=== PATIENT | female | born 1950 | race Caucasian/White ===

== ENCOUNTER 2018-07-22 07:46 | Observation (INO) ==
[2018-07-22] MEDS ORDERED: Famotidine 20 MG/2 ML VIAL IVP ONE (08:32)
[2018-07-22] MEDS ORDERED: Clindamycin 600 MG/50 ML 600 MG/50 ML IV.SOLN IVPB ONE (08:33)
[2018-07-22] MEDS ORDERED: Pregabalin 75 MG CAPSULE PO ONE (08:34)
[2018-07-22] MEDS ORDERED: Acetaminophen IV 1,000 MG/100 ML INFUS..BTL IVPB ONE (08:34)
[2018-07-22] MEDS ORDERED: *HR* FentaNYL (PF) 100 MCG/2 ML VIAL ONE (09:26)
[2018-07-22] MEDS ORDERED: *HR* Propofol 200 MG/20 ML VIAL IVP ONE (09:26)
[2018-07-22] MEDS ORDERED: Lidocaine -MPF 2% 2 ML VIAL ONE (09:27)
[2018-07-22] MEDS: Ringers Solution, Lactated 1,000 ML IVC SCH (09:50)
[2018-07-22] MEDS ORDERED: Bupivacaine/EPI 1:200k 0.5%PF 30 ML VIAL ONE (10:14)
[2018-07-22] MEDS ORDERED: *HR* Midazolam HCl 2 MG/2 ML VIAL ONE (10:30)
[2018-07-22] MEDS ORDERED: EPHEDrine 50 MG/ML VIAL ONE (10:38)
--- NOTE | 2018-07-22 10:46 | Anesthesia Evaluation PreOp ---
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: Other ( Anxiety/Depression, Tremors) Other Medical History: GERD, Other (L-breast Ca) Anesthesia History: No Prior Anesthetic Complications, Past Anesthesia (Hyster, Appy, B-Breast cyst, Bladder sling, basal cell Ca, U/s guided L-breast Bx 06/22/2018) Alcohol Use: none Drug use: none Medications and Allergies Budesonide/Formoterol 160/4.5 [Symbicort 160/4.5] 2 puff IH BIDR 07/01/18 [History] Calcium Carbonate [Calcium] 600 mg PO BID 07/01/18 [History] Multivitamin with Minerals [Totalday Multiple] 1 tab PO DAILY 07/01/18 [History] Paroxetine [Paxil] 30 mg PO DAILY 07/01/18 [History] Ranitidine HCl [Acid Executive Sales Assistant] 150 mg PO BID 07/01/18 [History] Allergy/AdvReac Type Severity Reaction Status Date / Time Amoxicillin [From Augmentin] Allergy Hives Verified 07/22/18 08:18 Cefprozil [From Cefzil] Allergy Hives Verified 07/22/18 08:18 clavulanic acid Allergy Hives Verified 07/22/18 08:18 [From Augmentin] niacin Allergy Hives Verified 07/22/18 08:18 nitrofurantoin Allergy Hives Verified 07/22/18 08:18 [From Macrobid] sulfamethoxazole Allergy Hives Verified 07/22/18 08:18 [From Bactrim] trimethoprim [From Bactrim] Allergy Hives Verified 07/22/18 08:18 morphine AdvReac Mild Muscle Pain Verified 07/15/18 12:27 - Meds/Allergy Pre-op Review Medications Reviewed: Yes Allergies Reviewed: Yes Beta Blockers on Current Med List: No Anesthesia Results - Labs Laboratory Tests 07/01/18 07/01/18 15:54 15:54 WBC 6.7 Hgb 13.3 Hct 40.4 Plt Count 262 Sodium 139 Potassium 4.2 Chloride 102 Carbon Dioxide 29 BUN 20 Est GFR (Non-Af Amer) 59 L - Imaging Additional studies: Stress Test 12/2015 Impressions: Stress ECG is non-diagnostic for ischemia due to submaximal HR (60%). Consider an alternative, non-heart rate dependent study to further evaluate chest pain. Anesthesia Exam O2 Sat Height 1.6 m Height 1.6 m Height 1.6 m Weight 73.028 kg Weight 73.028 kg Weight 73.028 kg O2 Sat by Pulse Oximetry 96 Vital Signs Temp Pulse Resp BP Pulse Ox 98.3 F 74 18 128/67 96 07/22/18 08:02 07/22/18 08:02 07/22/18 08:02 07/22/18 08:02 07/22/18 08:02 Height: 5'3" Weight: 163# BMI= 26.5 NPO (# of Hours): MNoc - HEENT Pupil (Motor): Pupils equal, EOMI Mallampati: II Teeth: Missing, Edentulous (upper) Denture Type: Upper: Complete Oral Opening: Greater than 3 - STATE WILDLIFE OFFICER LOC: Oriented STATE WILDLIFE OFFICER Motor: Normal RUE, Normal LUE, Normal RLE, Normal LLE, Normal Face STATE WILDLIFE OFFICER Sensory: Normal: RUE, LUE, RLE, LLE, Face - Cardiac Rhythm: Regular Murmur: None - Pulmonary Breath Sounds: bilateral Clear Respiratory Effort: Symmetrical Anesthesia Assess/Plan ASA Score: 3 (L-breast Ca, Anxiety/Depression, Asthma) Modified [place] Scale for Level of Consciousness: Cooperative, oriented, and tranquil Anesthetic Plan: General Monitoring Plan: Standard Monitors Recovery Plan: PACU Anes Supervising Prov Stmt: Pt seen/evaluated, R&B discussed, questions answered and consent obtained. Bigg Leiva MD
[2018-07-22] MEDS ORDERED: Dexamethasone 4 MG/ML VIAL ONE (10:49)
[2018-07-22] MEDS ORDERED: Ondansetron 4 MG/2 ML VIAL ONE (10:49)
--- NOTE | 2018-07-22 10:50 | History & Physical Report ---
Date of Encounter: 07/22/18 Time of Encounter: 08:40 24 Hour HP Update - Instructions Instructions: If the History and Physical is less than 30 days old and was completed prior to A.M. admission and or procedure and has NOT been updated on calendar day of procedure please complete this update prior to performing procedure. - Update Patient reports changes in Medical Condition: No Changes in examination, assessment, or condition: No Changes in Medication: No Preop tests/diagnostics Reviewed: Yes Surgery Remains Indicated: Yes Consent for Planned Operative Procedure(s) Verified: Yes - Pre-Operative Checklist Preoperative Checklist Indicated: Yes Prophylactic Antibiotic Ordered: Yes Home Medications Include Beta [place]: No Is VTE Prophylaxis Indicated?: Yes
[2018-07-22] MEDS ORDERED: Ketorolac 30 MG/ML VIAL ONE (10:53)
[2018-07-22] MEDS ORDERED: Ondansetron 4 MG/2 ML VIAL IVP PRN (11:04)
[2018-07-22] MEDS ORDERED: *HR* OxyCODONE Immed Rel 5 MG TABLET PO PRN (11:04)
[2018-07-22] MEDS ORDERED: *HR* HYDROmorphone 2 MG/ML SYRINGE IVP PRN (11:05)
[2018-07-22] MEDS ORDERED: *HR* Labetalol 20 MG/4 ML SYRINGE IVP PRN (11:05)
[2018-07-22] MEDS ORDERED: *HR* OxyCODONE/APAP 5/325 TABLET PO PRN (11:25)
--- NOTE | 2018-07-22 11:30 | Operative Note ---
Date of procedure: 07/22/18 Pre-op diagnosis: Left breast cancer Post-op diagnosis: same Procedure: #1 left sentinel lymph node biopsy #2 left pre-needle localized lumpectomy Anesthesia: GETA Surgeon: Bassam Knight Was there an press assistant present: Yes Business Operations Analyst: Tomeka Rivera Estimated blood loss (cc): 20 Specimen: #1 sentinel lymph node #2 left breast lumpectomy Condition: stable Disposition: PACU Procedure in Detail: After informed consent the patients taking major operative suite placed supine position given adequate general endotracheal anesthesia. The left breast and axilla was prepped and draped in sterile fashion utilizing ChloraPrep standard draping techniques. Timeout was taken and the patient is identified. The lateralizing cj is identified. I injected 2 mL of Leah ink in the left breast. I performed 5 minute breast massage. I used the hand-held Elwin counter to identify the sentinel lymph node. Transcutaneous maximum counts were 25. Injection site counts were 11 thousand. I made a transverse incision in the axilla dissected down the lymph node bearing tissue. I readily identified the radioactive lymph node. In vivo measurements were 75. The lymph node was removed and secured with medium surgical clips circumferentially. The ex vivo measurements were 190. There was no other radioactivity in the axilla. The lymph node did not stain blue. I reviewed the in no mammogram. Made a transverse incision wire entry site medially. I dissected down the level of the wire. I removed a lumpectomy core of tissue with good margins around the placement wire. The wire was not visualized at any time during the resection. Electrocautery and surgical clips were used for hemostasis. The specimen was oriented using the specimen orientation system. The specimen was sent for specimen mammogram. The cavity in the breast was examined. Surgical clips and electrocautery was used for hemostasis. The breast was closed with multiple layers using interrupted Vicryl on the deep layers running Vicryl and subcuticular layer both incisions. She tolerated the procedure well
--- NOTE | 2018-07-22 11:33 | Discharge Summary ---
Outpatient Proc Discharge Plan - Plan Instructions: [place] Lymph Node Breast Biopsy (DC) Prescriptions: OxyCODONE/APAP 5/325 [Percocet 5/325 MG] 1 each PO Q6HR PRN 7 Days #20 tablet PRN Reason: Pain Home Medications: Budesonide/Formoterol 160/4.5 [Symbicort 160/4.5] 2 puff IH BIDR 07/01/18 [History] Calcium Carbonate [Calcium] 600 mg PO BID 07/01/18 [History] Multivitamin with Minerals [Totalday Multiple] 1 tab PO DAILY 07/01/18 [History] Paroxetine [Paxil] 30 mg PO DAILY 07/01/18 [History] Ranitidine HCl [Acid Physics Technical Officer] 150 mg PO BID 07/01/18 [History] OxyCODONE/APAP 5/325 [Percocet 5/325 MG] 1 each PO Q6HR PRN 7 Days #20 tablet 07/22/18 [Rx]
--- NOTE | 2018-07-22 17:55 | Anesthesia Evaluation Post Op ---
Date of Encounter: 07/22/18 Time of Encounter: 17:53 - Vital Signs Vital Signs: Vital Signs/O2 Sat, Most Current Temp Pulse Resp BP Pulse Ox 97.9 F 93 18 105/60 95 07/22/18 12:30 07/22/18 15:00 07/22/18 15:00 07/22/18 15:00 07/22/18 15:00 - Lungs Lungs: Clear Ascult./Percussion - Airway Airway: Non-obstructed - Cardiovascular Regular Rate - Mental Status Mental Status: Alert & Oriented, Answers Appropriately - Pain Pain Scale: 0 Pain Scale used: Numeric (1 - 10) - Nausea Vomiting Nausea Vomiting: Not Present - Hydration Hydration: Tolerates oral liquids, Has not voided - Discharge PostOp Status: Transfer Patient to floor
[2018-07-22] MEDS ORDERED: Ipratropium/Albuterol Neb 3 ML IH PRN (18:22)
[2018-07-22] MEDS: 0.9 % Sodium Chloride 1,000 ML IVC SCH (19:25)
[2018-07-22] MEDS: Budesonide/Formoterol 160/4.5 1 PUFF INH IH SCH (20:19)
[2018-07-22] MEDS: Famotidine 20 MG TABLET PO SCH (20:43)
[2018-07-23 07:05] VITALS: BP 102/56
--- NOTE | 2018-07-23 08:57 | Discharge Summary ---
- NOTES TO OUTPATIENT PROVIDER Notes to Outpatient Provider: Patient is s/p left breast sentinel node boipsy and lumpectomy for breast cancer. Orders not resulted at time of discharge: Pending orders 07/22/18 11:29 Surgical Pathology [PTH] Routine Date of Encounter: 07/23/18 Time of Encounter: 09:00 - Discharge Diagnosis (1) Breast cancer Status: Acute General Surgery Exam Initial Vital Signs Temp Pulse Resp BP Pulse Ox 98.3 F 74 18 128/67 96 07/22/18 08:02 07/22/18 08:02 07/22/18 08:02 07/22/18 08:02 07/22/18 08:02 - General physical appearance well developed, well nourished - Respiratory normal expansion, normal respiratory effort - Cardiovascular Cardiovascular exam: Present: RRR - Abdomen Abdomen general surgery: Present: bowel sounds present, soft, non tender - Incision Incision: Present: clean and dry, intact (1 incision in left anterior axilla, 1 incision superiolateral aspect of left breast) - Integumentary Integumentary general surgery: Present: warm and dry - Psychiatric Psychiatric general surgery: Present: A&Ox3, appropriate, oriented to person, oriented to place, oriented to time - Hospital Course Hospital course: Ms. Anderson is a 68 year old female with with left breast cancer presents for surgical resection. Patient received left mammogram which confirmed wire localization. Patient had left sentinel node biopsy and lumpectomy of left breast by Dr. Knight on 07/22/18. Patient is pot-op day 1 today. She is doing well with no complaints. We will discharge patient to home with prescription for oxycodone for pain PRN. Patient given instructions to keep wound clean. - Time Spent with Patient Total time spent providing and/or coordinating discharge services: Less than 30 minutes - Discharge Medications Home Medications: Budesonide/Formoterol 160/4.5 [Symbicort 160/4.5] 2 puff IH BIDR 07/01/18 [History] Calcium Carbonate [Calcium] 600 mg PO BID 07/01/18 [History] Multivitamin with Minerals [Totalday Multiple] 1 tab PO DAILY 07/01/18 [History] Paroxetine [Paxil] 30 mg PO DAILY 07/01/18 [History] Ranitidine HCl [Acid Oracle Ebs Architect] 150 mg PO BID 07/01/18 [History] OxyCODONE/APAP 5/325 [Percocet 5/325 MG] 1 each PO Q6HR PRN 7 Days #20 tablet 07/22/18 [Rx] Allergies/Adverse Reactions: Allergy/AdvReac Type Severity Reaction Status Date / Time Amoxicillin [From Augmentin] Allergy Hives Verified 07/22/18 08:18 Cefprozil [From Cefzil] Allergy Hives Verified 07/22/18 08:18 clavulanic acid Allergy Hives Verified 07/22/18 08:18 [From Augmentin] niacin Allergy Hives Verified 07/22/18 08:18 nitrofurantoin Allergy Hives Verified 07/22/18 08:18 [From Macrobid] sulfamethoxazole Allergy Hives Verified 07/22/18 08:18 [From Bactrim] trimethoprim [From Bactrim] Allergy Hives Verified 07/22/18 08:18 morphine AdvReac Mild Muscle Pain Verified 07/15/18 12:27 Date of admission: 07/22/18 17:35 Primary care physician: Domingo Faith DO Discharging clinician: Marco A Diehl Anticipated date of discharge: 07/23/18 - Impressions ITS Impressions Guidance Needle Placement Ultrasound 07/22/18 08:45 IMPRESSION: 1. Ultrasound-guided left breast mass localization. D/ / Prashanth Mendoza MD / Prashanth Mendoza MD Interpreting Provider: Prashanth Mendoza MD [place] Node Without Imaging Nuclear Med 07/22/18 08:45 IMPRESSION: No images were acquired. Lymph nodes localized with probe in the OR. D/ / Prashanth Mendoza MD / Prashanth Mendoza MD Interpreting Provider: Prashanth Mendoza MD Breast Needle Localization 07/22/18 09:15 IMPRESSION: 1. Ultrasound-guided left breast mass localization. D/ / Prashanth Mendoza MD / Prashanth Mendoza MD Interpreting Provider: Prashanth Mendoza MD - Patient Status Disposition: Home, Self-Care Condition: Good Functional capacity at discharge: independent ambulation Overall status at discharge: patient is back to baseline - Discharge Instructions Instructions: [place] Lymph Node Breast Biopsy (DC) Follow Up With: Bassam Knight MD [Partnered Physician] - 08/16/19 11:10 am Domingo Faith DO [Primary Care Provider] - - Diet and Activity Activity: increase activity as tolerated Diet: advance to your usual diet
[2018-07-23] MEDS ORDERED: Multivit/Ca/Min/Fe/FA 1 TAB TABLET PO SCH (09:00)
[2018-07-23] MEDS: Famotidine 20 MG TABLET PO SCH (09:02)
[2018-07-23] MEDS: 0.9 % Sodium Chloride 1,000 ML IVC SCH (09:02)
[2018-07-23] MEDS: Ringers Solution, Lactated 1,000 ML IVC SCH (09:03)
[2018-07-23] MEDS: Budesonide/Formoterol 160/4.5 1 PUFF INH IH SCH (09:46)
--- NOTE | 2018-08-03 10:59 | General Surgery Progress Note ---
Date of Encounter: 07/23/18 Time of Encounter: 07:00 - Assessment and Plan (1) Breast cancer Status: Acute The patient had lumpectomy and sentinel lymph node biopsy. She had some hypoxia during the postoperative period and same day care. This resolved quickly when she was transferred to floor. She is stable on morning after surgery and remained outpatient in a bed. She is discharged from the hospital and given clinical follow-up in 7 days. Qualifiers: Breast location: unspecified site of breast Estrogen receptor status: unspecified Patient sex: female Laterality: unspecified laterality Qualified Code(s): C50.919 - Malignant neoplasm of unspecified site of unspecified female breast Subjective Narrative: The patient initially had evidence of hypoxia in same-day surgery prior to discharge. She had been plan to have a discharge the same day of surgery. She did not meet discharge criteria. She was placed as an outpatient in the bed status. Assuming she arrived on the floor, her hypoxia resolved. She remained stable overnight. The following morning her pain control is excellent her incisions were clean and dry and there was no hypoxia. She is discharged home. Objective - General physical appearance well developed, well nourished, no pain - Respiratory normal expansion, normal respiratory effort, clear to percussion, clear to auscultation - Cardiovascular Cardiovascular exam: Present: RRR, no murmurs/rubs/gallops - Abdomen Abdomen: Present: bowel sounds present, soft, non tender - Incision Incision: Present: clean and dry - VTE Documentation of Mechanical Device: Intermittent pneumatic compression device Consult Discharge Plan - Plan Instructions: [place] Lymph Node Breast Biopsy (DC) Referrals: Bassam Knight MD [Partnered Physician] - 08/06/18 11:10 am
== END 2018-07-23 10:18 | disposition home or self-care (01) ==
LOC: 3ANU 07:46 → SAMDAY 07:46
PROVIDERS: ADMIT Surgery; ATTEND Surgery